=== PATIENT | male | born 1955 | race Caucasian/White ===

== ENCOUNTER 2017-12-19 10:43 | Emergency (ER) | payer OTHER ==
[~2017-12-19] VITALS: Ht 182.9 cm; Wt 96.2 kg
[2017-12-19 10:51] VITALS: Ht 182.9 cm; Wt 96.2 kg
[2017-12-19 11:48] VITALS: BP 173/93
== END 2017-12-19 12:30 | disposition home or self-care (01) ==
LOC: ED 10:43
DX: S62.114A Nondisplaced fracture of triquetrum [cuneiform] bone, right wrist, initial encounter for closed fracture (principal); X58.XXXA Exposure to other specified factors, initial encounter; Y93.89 Activity, other specified; Y92.89 Other specified places as the place of occurrence of the external cause; Y99.8 Other external cause status